=== PATIENT | male | born 1980 | race Caucasian/White ===

== ENCOUNTER 2018-11-13 14:42 | Emergency (ER) | payer OTHER ==
[~2018-11-13] VITALS: Ht 167.6 cm; Wt 71.7 kg
[2018-11-13] MEDS ORDERED: NITROGLYCERIN SUBLINGUAL 0.4 MG BOTTLE OF 25. SL PRN (15:00)
[2018-11-13] MEDS ORDERED: ASPIRIN 81 MG TAB.CHEW PO ONE (15:15)
[2018-11-13 15:21] LABS: BASO % 0 % (0-3); EOS # 0.1 x10^3/uL (0.0-0.7); EOS % 2 % (0-3); HEMATOCRIT 43.6 % (39.0-53.0); HEMOGLOBIN 15.1 g/dL (13.0-17.5); LYMPH # 0.8 x10^3/uL (1.0-4.8); LYMPH % 15 % (24-48); MEAN CORPUSCULAR HEMOGLOBIN 27 pg (25-35); MEAN CORPUSCULAR HGB CONC 35 g/dL (31-37); MEAN CORPUSCULAR VOLUME 79 fL (79-100); MONO # 0.7 x10^3/uL (0.0-1.1); MONO % 13 % (0-9); NEUT # 3.8 x10^3uL (1.8-7.7); NEUT % 71 % (31-73); PLATELET COUNT 140 x10^3/uL (140-400); RED BLOOD COUNT 5.52 x10^6/uL (4.30-5.70); RED CELL DISTRIBUTION WIDTH 12.8 % (11.5-14.5); WHITE BLOOD COUNT 5.4 x10^3/uL (4.0-11.0)
--- NOTE | 2018-11-13 15:25 | RAD ---
CHEST PA LATERAL History: CHEST PAIN STARTED TODAY. No prior for comparison. Heart size is not enlarged. No pneumothorax or effusion. No evidence of infiltrate. Regional skeleton is intact. IMPRESSION: No consolidating infiltrate. Electronically signed by: Nikita Cohn MD (11/13/2018 3:23 PM) [facility]
[2018-11-13 15:33] LABS: ALBUMIN 3.7 g/dL (3.4-5.0); ALBUMIN/GLOBULIN RATIO 1.1 (1.0-1.7); GFR 84.1; MAGNESIUM 1.9 mg/dL (1.8-2.4); POTASSIUM 3.8 mmol/L (3.5-5.1); TOTAL BILIRUBIN 0.5 mg/dL (0.2-1.0); TOTAL PROTEIN 7.1 g/dL (6.4-8.2)
[2018-11-13 15:44] LABS: INFLUENZA A PATIENT NEGATIVE (NEGATIVE); INFLUENZA B PATIENT NEGATIVE (NEGATIVE)
[2018-11-13] MEDS ORDERED: KETOROLAC 30 MG/ML VIAL. IV ONE (16:00)
[2018-11-13] MEDS ORDERED: IBUP800T19 PO (16:12)
--- NOTE | 2018-11-13 16:12 | PHYS DOC ---
Past History Past Medical History: No Pertinent History Past Surgical History: No Surgical History Smoking: Non-smoker Alcohol Use: None Drug Use: None Adult General Chief Complaint Chief Complaint: CHEST PAIN HPI HPI Patient is a 38 year old male who presents with complaining of chest pain. Patient complaining of substernal squeezing pain since noontime as an intermittent pain that resolving with walking and getting worse with sitting down and not moving. Patient states the pain was 6/10 and rated his pain at arrival to ER at 1-2/10. Patient states he feels the same pain in his back and denies shortness of breath, palpitation, nausea and vomiting, dizziness, cough and congestion. Patient states he had a temperature of 100 last night without URI symptoms. Patient states he had the same pain about 6 months ago that resolved spontaneously without seeking medical attention. Patient denies CAD, hypertension, dyslipidemia, diabetes, smoking and family history of coronary artery disease. Review of Systems Review of Systems Constitutional: Denies fever or chills [] Eyes: Denies change in visual acuity, redness, or eye pain [] HENT: Denies nasal congestion or sore throat [] Respiratory: Denies cough or shortness of breath [] Cardiovascular: No additional information not addressed in HPI [] GI: Denies abdominal pain, nausea, vomiting, bloody stools or diarrhea [] : Denies dysuria or hematuria [] Musculoskeletal: Denies back pain or joint pain [] Integument: Denies rash or skin lesions [] Neurologic: Denies headache, focal weakness or sensory changes [] Endocrine: Denies polyuria or polydipsia [] All other systems were reviewed and found to be within normal limits, except as documented in this note. Current Medications Current Medications Current Medications Medications (Trade) Dose Ordered Sig/[facility] Start Time Stop Time Status Last Admin Dose Admin Aspirin (Children'S Aspirin) 324 mg 1X ONCE 11/13/18 15:15 11/13/18 15:16 DC 11/13/18 15:31 324 MG Ketorolac Tromethamine (Toradol 30mg Vial) 30 mg 1X ONCE 11/13/18 16:00 11/13/18 16:01 DC 11/13/18 15:53 30 MG Nitroglycerin (Nitrostat) 0.4 mg PRN Q5MIN PRN 11/13/18 15:00 11/14/18 14:59 11/13/18 15:31 0.4 MG Allergies Allergies Allergies Coded Allergies Type Severity Reaction Last Updated Verified No Known Allergies Allergy Unknown 11/13/18 Yes Physical Exam Physical Exam Constitutional: Well developed, well nourished, no acute distress, non-toxic appearance. [] HENT: Normocephalic, atraumatic Eyes: PERRLA, EOMI, conjunctiva normal, no discharge. [] Neck: Normal range of motion, no tenderness, supple, no stridor. [] Cardiovascular:Heart rate regular rhythm, no murmur [] Lungs & Thorax: Bilateral breath sounds clear to auscultation [] Abdomen: Bowel sounds normal, soft, no tenderness, no masses, no pulsatile masses. [] Skin: Warm, dry, no erythema, no rash. [] Back: No tenderness, no CVA tenderness. [] Extremities: No tenderness, no cyanosis, no clubbing, ROM intact, no edema. [] Neurologic: Alert and oriented X 3, normal motor function, normal sensory function, no focal deficits noted. [] Psychologic: Affect normal, judgement normal, mood normal. [] Current Patient Data Vital Signs Vital Signs Date Time Temp Pulse Resp B/P (MAP) Pulse Ox O2 Delivery O2 Flow Rate FiO2 11/13/18 15:31 89 123/83 11/13/18 14:47 98.3 20 99 Room Air Lab Results Laboratory Tests Test 11/13/18 14:58 11/13/18 15:00 PTT 29 SEC (23-33) D-Dimer (Leigha) 0.21 mg/L (0.00-0.50) Sodium Level 137 mmol/L (136-145) Potassium Level 3.8 mmol/L (3.5-5.1) Chloride Level 101 mmol/L (98-107) Carbon Dioxide Level 31 mmol/L (21-32) Anion Gap 5 (6-14) L Blood Urea Nitrogen 19 mg/dL (8-26) Creatinine 1.0 mg/dL (0.7-1.3) Estimated GFR (Cockcroft-Gault) 84.1 BUN/Creatinine Ratio 19 (6-20) Glucose Level 116 mg/dL (70-99) H Calcium Level 9.0 mg/dL (8.5-10.1) Magnesium Level 1.9 mg/dL (1.8-2.4) Total Bilirubin 0.5 mg/dL (0.2-1.0) Aspartate Amino Transferase (AST) 18 U/L (15-37) Alanine Aminotransferase (ALT) 21 U/L (16-63) Alkaline Phosphatase 51 U/L (46-116) Creatine Kinase 54 U/L (39-308) Troponin I Quantitative < 0.017 ng/mL (0-0.055) Total Protein 7.1 g/dL (6.4-8.2) Albumin 3.7 g/dL (3.4-5.0) Albumin/Globulin Ratio 1.1 (1.0-1.7) Lipase 154 U/L (73-393) White Blood Count 5.4 x10^3/uL (4.0-11.0) Red Blood Count 5.52 x10^6/uL (4.30-5.70) Hemoglobin 15.1 g/dL (13.0-17.5) Hematocrit 43.6 % (39.0-53.0) Mean Corpuscular Volume 79 fL (79-100) Mean Corpuscular Hemoglobin 27 pg (25-35) Mean Corpuscular Hemoglobin Concent 35 g/dL (31-37) Red Cell Distribution Width 12.8 % (11.5-14.5) Platelet Count 140 x10^3/uL (140-400) Neutrophils (%) (Auto) 71 % (31-73) Lymphocytes (%) (Auto) 15 % (24-48) L Monocytes (%) (Auto) 13 % (0-9) H Eosinophils (%) (Auto) 2 % (0-3) Basophils (%) (Auto) 0 % (0-3) Neutrophils # (Auto) 3.8 x10^3uL (1.8-7.7) Lymphocytes # (Auto) 0.8 x10^3/uL (1.0-4.8) L Monocytes # (Auto) 0.7 x10^3/uL (0.0-1.1) Eosinophils # (Auto) 0.1 x10^3/uL (0.0-0.7) Basophils # (Auto) 0.0 x10^3/uL (0.0-0.2) Influenza Type A (Rapid) Negative (NEGATIVE) Influenza Type B (Rapid) Negative (NEGATIVE) EKG EKG EKG interpreted by me. EKG at 1451 showed normal sinus rhythm at rate of 91, normal [place] and QT intervals, no acute ST and T-wave abnormalities. Radiology/Procedures Radiology/Procedures [address] [address] IMAGING REPORT Signed PATIENT: BIBI JACOBS ACCOUNT: [id number] : 1980 LOCATION: ER AGE: 38 SEX: M EXAM STATUS: PRE ER ORD. PHYSICIAN: LINDSAY MI MD REASON: chest pain PROCEDURE: CHEST PA & LATERAL CHEST PA LATERAL History: CHEST PAIN STARTED TODAY. No prior for comparison. Heart size is not enlarged. No pneumothorax or effusion. No evidence of infiltrate. Regional skeleton is intact. IMPRESSION: No consolidating infiltrate. Electronically signed by: Nikita Cohn MD (11/13/2018 3:23 PM) [facility] DICTATED AND SIGNED BY: NIKITA COHN MD DATE: 11/13/18 1523 CC: LINDSAY MI MD; PCP,UNKNOWN ~ Course & Med Decision Making Course & Med Decision Making Pertinent Labs and Imaging studies reviewed. (See chart for details) Evaluation of patient in ER showed 38-year-old male patient with complaining of intermittent substernal chest pain for the last 4 hours. Patient had unremarkable physical exam and labs including d-dimer and cardiac enzymes and EKG. Patient's pain did not change with nitroglycerin and aspirin. He felt better with Toradol. Plan to discharge patient home with diagnosis of musculoskeletal chest pain and instruction to follow up with primary care physician for further evaluation. Dragon Disclaimer Dragon Disclaimer This electronic medical record was generated, in whole or in part, using a voice recognition dictation system. Departure Departure: Impression: Primary Impression: Musculoskeletal chest pain Disposition: HOME, SELF-CARE (at 1611) Condition: IMPROVED Referrals: PCP,UNKNOWN (PCP) Patient Instructions: Chest Wall Pain Additional Instructions: Apply ice on the affected area Follow-up with your primary care physician in 3-5 days Return to ER if not getting better Scripts Ibuprofen (IBUPROFEN) 800 Mg Tablet 1 TAB PO TID for pain, #30 TAB Prov: LINDSAY MI MD 11/13/18 LINDSAY MI MD Nov 13, 2018 16:12
[2018-11-13 16:15] VITALS: BP 114/70
--- NOTE | 2018-11-14 22:31 | EKG ---
[address] [address] Test Date: 2018-11-13 Test Time: 14:51:19 Pat Name: BIBI JACOBS Department: Room: Gender: M [employer]: MARCELA : 1980 Requested By: LINDSAY MI Order Number: [id number] Reading MD: Hiren Lord MD Measurements Intervals [place] Rate: 91 P: 48 VA: 128 QRS: 88 QRSD: 100 T: 26 QT: 354 QTc: 437 Interpretive Statements SINUS RHYTHM Electronically Signed On 11-20-2018 13:48:23 CDT by Hiren Lord MD
== END 2018-11-13 16:17 | disposition home or self-care (01) ==
LOC: ER 14:42
DX: R07.2 Precordial pain (principal)
CPT/HCPCS: 36415; 71046; 80053; 82550; 83690; 83735; 84484; 85025; 85379; 85730; 87804; 93005; 96374; 99284; J1885